=== PATIENT | female | born 1970 | race Caucasian/White ===

== ENCOUNTER → 2017-11-11 | Outpatient (CLI) | payer BC ==
[~2017-11-11] MED LIST: AMBEREN; CARAFATE 1 GM TA1 GM PO; CELEXA 20 MG TA20 M1 PO; ESTRACE2 MG PO; HYDROCHLOROTH12.5 MG; HYDROCODONE-APA1 TA1 PO; KLOR-CON 10 ER10 MEQ PO; NORCO 5-325 TA1 EACH PO; XALATAN2.5 ML OP; ZOFRAN ODT4 MG PO
--- NOTE | 2017-11-11 10:19 | 2DMMODE ---
[place] [address] 2 D/M-MODE ECHOCARDIOGRAM Name: RASHMI HENDRICKSON Room: [facility]#: [id number] Admission: 11/11/17 Attend Phys: Sophie Herrera, Discharge: Date of : 72 Date of Service: 11/11/17 1019 Report #: [id number] THIS REPORT FOR: //name// APPROVED REPORT Study performed: 11/11/2017 08:11:55 EXAM: Comprehensive 2D, Doppler, and color-flow Echocardiogram Patient Location: Out-Patient Status: routine BSA: 1.95 HR: 71 bpm BP: 115/78 mmHg Other Information Study Quality: Good Technically limited study due to Breast Implants. Indications Murmur 2D Dimensions LVEF(%): 56.93 (>50%) IVSd: 12.03 (7-11mm) LVOT Diam: 19.84 (18-24mm) LVDd: 39.70 mm PWd: 9.08 (7-11mm) Ascending Ao: 26.52 (22-36mm) LVDs: 28.03 (25-40mm) Aortic Root: 26.96 mm Astudillo's LVEF: 56.93 % Volumes Left Atrial Volume (Systole) LA ESV Index: 13.00 mL/m2 Aortic Valve AoV Peak Hugh.: 1.11 m/s AO Peak Gr.: 4.95 mmHg LVOT Max P.31 mmHg AO Mean Gr.: 2.77 mmHg LVOT Mean P.61 mmHg LVOT Max V: 0.91 m/s AO V2 VTI: 23.93 cm LVOT Mean V: 0.58 m/s ANSLEY (VTI): 2.46 cm2 LVOT V1 VTI: 19.03 [place] [address] 2 D/M-MODE ECHOCARDIOGRAM Name: RASHMI HENDRICKSON Room: [facility]#: [id number] Admission: 11/11/17 Attend Phys: Sophie Herrera, Discharge: Date of : 72 Date of Service: 11/11/17 1019 Report #: [id number] E/A Ratio: 1.14 MV Decel. Time: 186.47 ms MV E Max Hugh.: 0.56 m/s MV PHT: 54.08 ms MVA (PHT): 4.07 cm2 TDI E/Lateral E': 5.60 E/Medial E': 6.22 Medial E' Hugh.: 0.09 m/s Lateral E' Hugh.: 0.10 m/s Pulmonary Valve PV Peak Hugh.: 0.83 m/s PV Peak Gr.: 2.78 mmHg Tricuspid Valve TR Peak Gr.: 18.44 mmHg RVSP: 23.44 mmHg Left Ventricle The left ventricle is normal size. There is normal LV segmental wall motion. There is normal left ventricular wall thickness. Left ventricular systolic function is normal. The left ventricular ejection fraction is within the normal range. LVEF is 60%. The left ventricular diastolic function is normal. Right Ventricle The right ventricle is normal size. The right ventricular systolic function is normal. Atria The left atrium size is normal. The right atrium size is normal. Aortic Valve The aortic valve is normal in structure. No aortic regurgitation is present. There is no aortic valvular stenosis. Mitral Valve The mitral valve is normal in structure. Trace mitral regurgitation. No evidence of mitral valve stenosis. Tricuspid Valve The tricuspid valve is normal in structure. Mild tricuspid regurgitation. The RVSP is __23 mmHg. Pulmonic Valve The pulmonary valve is normal in structure[place] [address] 2 D/M-MODE ECHOCARDIOGRAM Name: RASHMI HENDRICKSON Room: [facility]#: [id number] Admission: 11/11/17 Attend Phys: Sophie Herrera, Discharge: Date of : 72 Date of Service: 11/11/17 1019 Report #: [id number] regurgitation. Great Vessels The aortic root is normal in size. IVC is normal in size and collapses with >50% inspiration Pericardium There is no pericardial effusion. <Conclusion> The left ventricle is normal size. There is normal left ventricular wall thickness. Left ventricular systolic function is normal. The left ventricular ejection fraction is within the normal range. LVEF is 60%. The left ventricular diastolic function is normal. The right ventricle is normal size. The left atrium size is normal. The mitral valve is normal in structure. The tricuspid valve is normal in structure. Mild tricuspid regurgitation. The RVSP is __23 mmHg. IVC is normal in size and collapses with >50% inspiration There is no pericardial effusion. There is normal LV segmental wall motion. <ELECTRONICALLY SIGNED> By: Emerson Evans MD, FACC 11/11/17 1019 1019 1019 Emerson Evans MD, FACC /INF
== END ==
LOC: M.CRD 07:42
DX: I07.1 Rheumatic tricuspid insufficiency (principal)